=== PATIENT | female | born 1965 | race Caucasian/White ===

== ENCOUNTER 2017-01-04 07:19 | Inpatient (IN) | payer BC ==
[2016-12-01 14:29] VITALS: BMI 43.0
[~2017-01-04] VITALS: Ht 172.7 cm; Wt 129.6 kg
[2017-01-04] VITALS (8 sets, daily range): BP systolic 87–135; BP diastolic 51–88; PULSE 87–110; TEMP 36.6–37.1; O2SAT 93–100; Ht 172.7 cm; Wt 129.6 kg
[~2017-01-04 07:19] MED LIST: ATV/1 PO; CEFAZOLIN 3000 MG/65 ML D5W IV SCH; CYCL10TA6 PO; CeleBREX 200 MG CAP PO SCH; DIPH1TAB98 PO; DULO60CA44 PO; FAMO20TA11 PO; FERR1TAB13 PO; GABA-113 PO; HYDR-3983 PO; LACTATED RINGER'S 1000ML 1,000 ML IV SCH; LACTATED RINGER'S 1000ML 500 ML IV ONE; LEVO150T PO; MELO15TA4 PO; METH500T37 PO; PREGABALIN 75 MG CAP PO SCH; TOLT4CAP PO; TRAM-10 PO; VALS320T2 PO
[2017-01-04] MEDS ORDERED: EpHEDrine SULFATE INJ 50 MG/ML AMP IV PRN (07:45)
[2017-01-04] MEDS ORDERED: ONDANSETRON INJ 2 MG/ML 2 ML VIAL IV PRN ×2 (07:45→11:45)
[2017-01-04] MEDS ORDERED: ATROPINE SULFATE 0.1 MG/ML 5ML SYR IV PRN (07:45)
[2017-01-04] MEDS ORDERED: LEVO175T3 PO (08:32)
[2017-01-04] MEDS ORDERED: MIDAZOLAM HCL 1 MG/ML 2ML VIAL ONE (08:38)
[2017-01-04] MEDS ORDERED: FENTANYL CITRATE INJ 50 MCG/1 ML 2 ML VIAL ONE ×5 (08:38→11:07)
--- NOTE | 2017-01-04 08:51 | History and Physical ---
History & Physical Date Jan 04, 2017. Chief Complaint LBP and bilateral leg pain History of Present Illness The patient is a 51 year old female with complaints of above who has struggled for 7 months with classic neurogenic claudication. she has a positive shopping cart sign. She is using a walker for longer distance ambulation. 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 she failed to see improvement with PT or JOSH. MRI shows stenosis L3-5, xrays show a degen scoliosis L2-5 with facet djd. Her pedicles are small at L2. grade I degen spondy L4-5. Past Medical/Surgical History hypothyroidism fibromyalgia hernia repair c section L TKA iron deficiency anemia Additional History Hepatic Disease: No Endocrine Disorder: No Kidney Disease: No Hypertension: No Heart Disease: No Bleeding Tendencies: No Infectious Diseases: No Allergies Coded Allergies: Lisinopril (Verified Adverse Reaction, Unknown, cough, 01/04/17) Home Medications Scheduled Cyclobenzaprine Hcl (Flexeril), 10 MG PO HS Duloxetine Hcl (Cymbalta), 60 MG PO QAM Famotidine (Pepcid), 20 MG PO BID Ferrous Sulfate (Kp Ferrous Sulfate), 1 TAB PO TID Gabapentin (Neurontin), 300 MG PO TID Levothyroxine Sodium (Levothyroxine Sodium), 1 TAB PO QAM Lorazepam (Ativan), 0.25 MG PO BID Lorazepam (Ativan), 1 MG PO HS Meloxicam (Mobic), 15 MG PO QAM Tolterodine Tartrate (Detrol La), 4 MG PO HS Valsartan/Hctz (Diovan Hct 320MG/25MG), 1 TAB PO QAM Scheduled PRN Diphenhydramine Hcl (Sleep) (Sleep Aid), 1 TAB PO HS PRN for Sleep Hydrocodone/Acetaminophen 7.5MG/325MG ([place] 7.5MG/325MG), 1 TAB PO QID PRN for Pain Methocarbamol (Robaxin), 1,000 MG PO BID PRN for Pain Tramadol (Ultram), 100 MG PO Q6H PRN for Pain Physical Examination Skin: warm/dry Eyes: normal inspection, sclerae normal ENT: normal ENT inspection Head: normocephalic, atraumatic Neck: supple, trachea midline Respiratory/Chest: lungs clear, no respiratory distress Cardiovascular: regular rate, rhythm Back: normal inspection Extremities: normal inspection, normal range of motion Neurologic/Psych: no motor/sensory deficits, alert, normal reflexes, oriented x 3 Diagnosis lumbar stenosis L3-5, mild degen scoliosis, L4-5 degen spondylolisthesis Plan of Treatment L 3-5 decompression/fusion, possible inclusion of L2-3 based upon facet djd intraoperatively and pedicle size
[2017-01-04] MEDS ORDERED: BUPIVACAINE/EPINEPHRINE 0.5% MPF 1:200,000 30 ML VIAL ONE (09:09)
[2017-01-04] MEDS ORDERED: THROMBIN 5000 UNITS KIT ONE (09:09)
[2017-01-04] MEDS ORDERED: THROMBIN FOR SOLN 20000 UNIT KIT ONE ×2 (09:09→10:13)
[2017-01-04] MEDS ORDERED: HEPARIN SOD (PORCINE) 1000 UNIT/ML 10 ML VIAL ONE (09:10)
[2017-01-04] MEDS ORDERED: BACITRACIN 50000 UNIT VIAL ONE (09:10)
[2017-01-04] MEDS ORDERED: NURSING VERBAL MED ORDER ONE (09:23)
[2017-01-04] MEDS ORDERED: SCOPOLAMINE 1.5 MG TDSY TD ONE (09:30)
[2017-01-04] MEDS ORDERED: HYDROmorphone INJ 2 MG/ML SYR/VIAL ONE ×3 (09:58→11:44)
[2017-01-04] MEDS ORDERED: ROCURONIUM BROMIDE 10 MG/ML 5 ML VIAL ONE (10:28)
[2017-01-04] MEDS ORDERED: ONDANSETRON INJ 2 MG/ML 2 ML VIAL ONE ×2 (10:28→11:32)
[2017-01-04] MEDS ORDERED: DEXAMETHASONE SOD INJ 4 MG/ML VIAL ONE (10:28)
[2017-01-04] MEDS ORDERED: PROPOFOL IV EMULSION 10 MG/ML 20 ML VIAL IV ONE (10:28)
[2017-01-04] MEDS ORDERED: LIDOCAINE HCL 2% 2 ML VIAL (20MG/ML) ONE (10:28)
[2017-01-04] MEDS ORDERED: METOCLOPRAMIDE HCL INJ 5 MG/ML 2 ML VIAL ONE (10:28)
[2017-01-04] MEDS ORDERED: RANITIDINE HCL 25 MG/ML INJ ONE (10:28)
[2017-01-04] MEDS ORDERED: FLOSEAL HEMOSTATIC MATRIX 10ML TOP ONE (11:20)
[2017-01-04] MEDS ORDERED: SODIUM CHLORIDE 0.9% 1000ML 1,000 ML IV SCH (11:31)
--- NOTE | 2017-01-04 11:31 | [facility] Post Operative Brief Note ---
Immediate Operative Summary Operative Date Jan 04, 2017. Pre-Operative Diagnosis Lumbar stenosis L3-5, mild degenerative scoliosis, L4-5 degenerative spondylolisthesis Post-Operative Diagnosis same as pre-operative Procedure(s) Performed L3-L4, L4-L5, Decompression and Instrumented Fusion, Interbody Fusion, Infuse, with Autograft, non instrumented fusion L2-[address] Paul Alexander Nursing Education Consultant Surgeon(s) Juan Pablo Aquino PA-C Estimated Blood Loss 500ml Findings dict Specimens none
[2017-01-04] MEDS ORDERED: NEOSTIGMINE METHYLSULFATE 1 MG/ML 10ML VIAL ONE (11:32)
[2017-01-04] MEDS ORDERED: VOLUVEN IN NSS ONE (11:32)
[2017-01-04] MEDS ORDERED: GLYCOPYRROLATE INJ 0.2 MG/ML VIAL ONE (11:32)
--- NOTE | 2017-01-04 11:42 | DIAGNOSTIC IMAGING REPORT ---
LUMBAR SPINE, INTRAOPERATIVE FLUOROSCOPY HISTORY: L3-L5 decompression and fusion. FLUOROSCOPY TIME: 12 seconds. FINDINGS: Intraoperative fluoroscopy was provided for the lumbar spine. 3 fluoroscopic spot images were obtained. L3-L5 posterior decompression and fusion with pedicle screws and rods. The hardware is intact. IMPRESSION: Fluoroscopy provided for a L3-L5 posterior decompression and fusion. Electronically signed by: Marin Blunt M.D. 01/04/2017 11:41 AM Dictated Date/Time: 01/04/2017 11:40 AM
[2017-01-04] MEDS ORDERED: PROMETHAZINE HCL INJ 12.5 MG in SODIUM CHLORIDE 0.9% 50ML 50 ML IV PRN (11:45)
[2017-01-04] MEDS ORDERED: BISACODYL 10 MG SUPP PR PRN (11:45)
[2017-01-04] MEDS ORDERED: ACETAMINOPHEN IV 100 ML IV PRN (11:45)
[2017-01-04] MEDS ORDERED: FAMOTIDINE 20 MG TAB PO PRN (11:45)
[2017-01-04] MEDS ORDERED: hydrOXYzine HCL 25 MG TAB PO PRN (11:45)
[2017-01-04] MEDS ORDERED: SOD PHOSPHATE/SOD BIPHOSPHATE ENEMA 132 ML BTL PR PRN (11:45)
[2017-01-04] MEDS ORDERED: ALUMINUM/MAGNESIUM SUSP 30 ML UDC PO PRN (11:45)
[2017-01-04] MEDS ORDERED: LORAZEPAM INJ 0.5 MG in SYRINGE 0 ML IV PRN (11:45)
[2017-01-04] MEDS ORDERED: NALOXONE HCL 0.4 MG/1 ML VIAL/CARP IV PRN ×2 (11:45)
[2017-01-04] MEDS ORDERED: LORAZEPAM 0.5 MG TAB PO PRN (11:45)
[2017-01-04] MEDS ORDERED: METOCLOPRAMIDE HCL INJ 5 MG/ML 2 ML VIAL IV PRN (11:45)
[2017-01-04] MEDS: FENTANYL CITRATE INJ 50 MCG/1 ML 2 ML VIAL IV PRN ×4 (12:00→12:15)
[2017-01-04] MEDS ORDERED: MoRPHine SULFATE 1 MG/ML 50 ML PCA CASS ONE (12:00)
[2017-01-04] MEDS: HYDROmorphone INJ 1 MG/ML SYR IV PRN ×3 (12:20→12:40)
--- NOTE | 2017-01-04 12:44 | Anesthesiology Progress Note ---
Anesthesia Post Op Note Date & Time Jan 04, 2017 at 12:44 Vital Signs Pain Intensity: 3.0 Vital Signs Past 12 Hours Date Time Temp Pulse Resp B/P Pulse Ox O2 Delivery O2 Flow Rate FiO2 01/04/17 12:35 88 16 131/63 100 Nasal Cannula 4 01/04/17 12:25 91 18 136/63 100 Nasal Cannula 4 01/04/17 12:15 89 16 141/76 100 Nasal Cannula 4 01/04/17 12:05 90 18 140/56 100 Mask 10 01/04/17 11:55 96 17 145/85 100 Mask 10 01/04/17 11:48 37 98 16 138/88 100 Mask 10 01/04/17 08:10 36.7 90 20 135/83 96 Room Air Notes Mental Status: alert / awake / arousable, participated in evaluation Pt Amnestic to Procedure: Yes Nausea / Vomiting: adequately controlled Pain: adequately controlled Airway Patency, RR, SpO2: stable & adequate BP & HR: stable & adequate Hydration State: stable & adequate Anesthetic Complications: no major complications apparent
[2017-01-04] MEDS: MoRPHine SULFATE 1 MG/ML 50 ML PCA CASS IV PRN ×3 (13:33→23:19)
[2017-01-04] MEDS: SODIUM CHLORIDE 0.9% 1000ML 1,000 ML IV SCH (14:43)
[2017-01-04] MEDS ORDERED: DEXAMETHASONE INJ 6 MG in SYRINGE 0 ML IV SCH (18:00)
[2017-01-04] MEDS ORDERED: CEFAZOLIN IV 2,000 MG in DEXTROSE 5% 50ML 50 ML IV SCH (18:00)
[2017-01-04] MEDS ORDERED: LORAZEPAM 1 MG TAB PO SCH (21:00)
[2017-01-04] MEDS: GABAPENTIN 300 MG CAP PO SCH (21:31)
[2017-01-04] MEDS: LORAZEPAM 1 MG TAB PO SCH (21:37)
[2017-01-04] MEDS: DOCUSATE SODIUM/SENNA 50/8.6MG TAB PO SCH (23:18)
[2017-01-04] MEDS: FAMOTIDINE 20 MG TAB PO SCH (23:18)
[2017-01-05] MEDS ORDERED: CEFAZOLIN IV 2,000 MG in DEXTROSE 5% 50ML 50 ML IV SCH (03:00)
[2017-01-05] MEDS: SODIUM CHLORIDE 0.9% 1000ML 1,000 ML IV SCH (03:33)
[2017-01-05 04:09] VITALS: BP 118/61; PULSE 86; TEMP 36.6; O2SAT 94
[2017-01-05] MEDS: DEXAMETHASONE INJ 6 MG in SYRINGE 0 ML IV SCH ×2 (05:41→13:37)
[2017-01-05] MEDS ORDERED: HYDROmorphone INJ 1 MG/ML SYR IV PRN (06:00)
[2017-01-05] MEDS ORDERED: DC PCA ONE (06:00)
[2017-01-05] MEDS: LEVOTHYROXINE 175 MCG TAB PO SCH (06:34)
[2017-01-05 07:07] VITALS: BP 133/70; PULSE 84; TEMP 36.8; O2SAT 99
[2017-01-05] MEDS ORDERED: NURSING VERBAL MED ORDER ONE (07:15)
[2017-01-05 08:00] VITALS: O2SAT 99
[2017-01-05] MEDS: GABAPENTIN 300 MG CAP PO SCH ×3 (08:01→21:15)
[2017-01-05] MEDS: FAMOTIDINE 20 MG TAB PO SCH ×2 (08:02→21:14)
[2017-01-05] MEDS: OXYCODONE HCL IR 5 MG TAB (IMMEDIATE RELEASE) PO PRN ×4 (08:03→22:21)
[2017-01-05] MEDS: LORAZEPAM 0.5 MG TAB PO SCH ×2 (08:04→13:43)
[2017-01-05 08:08] LABS: MEAN CELL VOLUME 90.9 fL (80-100); MEAN CORPUSCULAR HEMOGLOBIN 29.2 pg (25-34); MEAN CORPUSCULAR HGB CONC 32.1 g/dl (32-36); MEAN PLATELET VOLUME 10.3 fL (7.4-10.4); PLATELET COUNT 345 K/uL (130-400); RED BLOOD COUNT 3.08 M/uL (4.2-5.4); WHITE BLOOD COUNT 17.65 K/uL (4.8-10.8)
[2017-01-05 08:34] LABS: BASO % 0.1 %; BASO ABS # 0.01 K/uL (0-0.2); COMPLETE YES; IG% 0.5 %; MONO % 4.7 %; NEUT % 90.7 %
[2017-01-05 08:39] LABS: BUN/CREATININE RATIO 11.4 (10-20); CALCIUM 8.3 mg/dl (8.5-10.1); CREATININE 0.77 mg/dl (0.60-1.20); POTASSIUM 4.1 mmol/L (3.5-5.1)
[2017-01-05] MEDS: DULOXETINE HCL 60 MG CAP PO SCH (09:21)
[2017-01-05] MEDS: VALSARTAN/HCTZ 160/12.5 MG TAB PO SCH (09:21)
--- NOTE | 2017-01-05 10:05 | Anesthesiology Progress Note ---
Anesthesia Post Op Note Date & Time Jan 05, 2017 at 10:04 Vital Signs Pain Intensity: 8.0 Vital Signs Past 12 Hours Date Time Temp Pulse Resp B/P Pulse Ox O2 Delivery O2 Flow Rate FiO2 01/05/17 08:00 99 Room Air 01/05/17 07:07 36.8 84 18 133/70 99 Room Air 01/05/17 04:09 36.6 86 16 118/61 94 Nasal Cannula 3.0 01/04/17 23:42 37.0 87 16 110/57 96 Nasal Cannula 3.0 01/04/17 23:30 Nasal Cannula 2.0 96 Notes Mental Status: alert / awake / arousable, participated in evaluation Pt Amnestic to Procedure: Yes Nausea / Vomiting: adequately controlled Pain: adequately controlled Airway Patency, RR, SpO2: stable & adequate BP & HR: stable & adequate Hydration State: stable & adequate Anesthetic Complications: no major complications apparent
[2017-01-05 12:20] VITALS: BP 116/67; PULSE 85; TEMP 36.6; O2SAT 98
[2017-01-05 15:26] VITALS: BP 101/63; PULSE 96; TEMP 36.7; O2SAT 94
[2017-01-05] MEDS: LORAZEPAM 1 MG TAB PO SCH (21:16)
[2017-01-05] MEDS: MAGNESIUM HYDROXIDE SUSP 30 ML UDC PO PRN (21:20)
[2017-01-05] MEDS: DOCUSATE SODIUM/SENNA 50/8.6MG TAB PO SCH (21:42)
[2017-01-05 23:16] VITALS: BP 103/53; PULSE 85; TEMP 36.9; O2SAT 95
[2017-01-06] MEDS: OXYCODONE HCL IR 5 MG TAB (IMMEDIATE RELEASE) PO PRN ×3 (04:46→15:56)
[2017-01-06] MEDS: LEVOTHYROXINE 175 MCG TAB PO SCH (05:37)
[2017-01-06] MEDS ORDERED: POLYETHYLENE (MIRALAX) 17 GM PACK PO SCH (06:00)
[2017-01-06 07:11] VITALS: BP 133/79; PULSE 91; TEMP 36.8; O2SAT 92
[2017-01-06] MEDS: GABAPENTIN 300 MG CAP PO SCH ×3 (09:55→21:39)
[2017-01-06] MEDS: DULOXETINE HCL 60 MG CAP PO SCH (09:56)
[2017-01-06] MEDS: VALSARTAN/HCTZ 160/12.5 MG TAB PO SCH (09:56)
[2017-01-06] MEDS: LORAZEPAM 0.5 MG TAB PO SCH ×2 (10:02→13:38)
[2017-01-06] MEDS: FAMOTIDINE 20 MG TAB PO SCH ×2 (13:36→21:39)
[2017-01-06] MEDS: HYDROmorphone INJ 0.5 MG/0.5 ML SYR IV PRN ×3 (13:43→20:00)
[2017-01-06] MEDS ORDERED: NURSING VERBAL MED ORDER ONE (14:00)
--- NOTE | 2017-01-06 15:04 | Orthopedic Progress Note ---
Orthopedic Progress Note Date of Service Jan 06, 2017. Subjective Post OP Day: 2 Reports: feeling well, Denies: SOB, calf pain, chest pain, complaints, light headedness, nausea / vomiting, pain controlled w PO medications, using QUALITY ASSURANCE CONSULTANT Objective calves soft nontender, N/V intact, dressing C/D/I, A&O x3, hemovac drainage Date Time Temp Pulse Resp B/P Pulse Ox O2 Delivery O2 Flow Rate FiO2 01/06/17 07:20 Room Air 01/06/17 07:11 36.8 91 16 133/79 92 Room Air 01/06/17 00:00 Room Air 01/05/17 23:16 36.9 85 18 103/53 95 Room Air 01/05/17 18:00 Room Air 01/05/17 15:26 36.7 96 18 101/63 94 Room Air Assessment & Plan Assessment: more LBP today, no leg symptoms. will add toradol, flexeril. d/c hvc, d/c tomorrow? Discharge Planning Discharge Planning: home Pain Management: Toradol, Oxy IR DVT Prophylaxis: SCDs
[2017-01-06] MEDS ORDERED: CYCLOBENZAPRINE HCL 5 MG TAB PO PRN (15:15)
[2017-01-06] MEDS: KETOROLAC TROMETHAMINE 30 MG/ML VIAL IV PRN ×2 (15:57→21:40)
[2017-01-06 16:36] VITALS: BP 108/63; PULSE 84; TEMP 36.7; O2SAT 99
[2017-01-06] MEDS: LORAZEPAM 1 MG TAB PO SCH (21:39)
[2017-01-06] MEDS: DOCUSATE SODIUM/SENNA 50/8.6MG TAB PO SCH (21:40)
[2017-01-06] MEDS: MAGNESIUM HYDROXIDE SUSP 30 ML UDC PO PRN (21:46)
[2017-01-06 23:05] VITALS: BP 125/70; PULSE 80; TEMP 36.8; O2SAT 96
[2017-01-07] MEDS: OXYCODONE HCL IR 5 MG TAB (IMMEDIATE RELEASE) PO PRN ×2 (05:30→09:37)
[2017-01-07] MEDS: LEVOTHYROXINE 175 MCG TAB PO SCH (05:31)
[2017-01-07 07:10] VITALS: BP 147/74; PULSE 75; TEMP 36.4; O2SAT 98
[2017-01-07] MEDS ORDERED: RXC5 PO (09:31)
--- NOTE | 2017-01-07 09:31 | Discharge Instructions ---
Discharge Instructions Date of Service Jan 07, 2017. Admission Reason for Admission: Lumbar Spinal Stenosis Discharge Discharge Diagnosis / Problem: same Discharge Goals Goal(s): Decrease discomfort Activity Recommendations Activity Limitations: per Instructions/Follow-up section . Instructions / Follow-Up Instructions / Follow-Up ACTIVITY RECOMMENDATIONS: SELF CARE INSTRUCTIONS AFTER THORACIC/LUMBAR FUSIONS 1. You may walk to your tolerance. It is good exercise for your legs and back. Expect some back and intermittent leg aches and pains. 2. You may perform "counter-top" level activities (make a sandwich, olivia with a project, etc.). 3. No bending or lifting of more than 10 pounds or back twisting of any nature (roll like a log when turning in bed). 4. You may ride in a car for 20-30 minutes at a time. No driving until after your first visit with your doctor. 5. Frequent changes of position and restricting sitting to 30 minutes at a time will help limit the amount of back spasms and stiffness you may experience. 6. You may discontinue the use of ambulatory aids (cane, crutches, etc.) once your strength and confidence allow. 7. You may ring attacher the shower and let water strike your incision when you arrive home at least once daily. Do not take a tub bath, sit in a hot tub or go into a swimming pool until after your first recheck in the office. SPECIAL CARE INSTRUCTIONS: VERY IMPORTANT TO READ AND REVIEW A. Your surgical incision has been closed with a cosmetic suture under the skin that will dissolve in about 6 weeks. In 14 days, you can use a pair of clean scissors and cut the suture that is left outside of the skin at the ends of your incision. 1. The small skin tapes can be removed 7 days after surgery if they have not fallen off by that point. 2. You may keep the wound open to air as much as possible to promote healing after post-op day number 5 unless told otherwise by your doctor. 3. If you think the wound looks like it is becoming infected (redness or worsening drainage) and/or you are experiencing fever, chill or worsening back pain and muscle spasms, contact the office so that we may evaluate you as soon as possible. B. Complications are uncommon, but please contact us if you have any signs or symptoms of: 1. wound infection (fever higher than 102.5 degrees F, redness, separation of wound, drainage, or increasing pain from the incision) 2. blood clots in legs (pain, swelling, redness and warmth in legs) 3. urinary tract infection (fever higher than 102.5 degrees F, burning upon urination or increased frequency of urination) 4. nerve problems (inability to walk on your toes or heels, numbness, loss of bowel or bladder control) 5. any other symptoms that concern you C. Please call the office at if you have any concerns or questions about your operation or recovery. D. No smoking! Smoking drastically decreases the chance of a solid fusion. E. Do not take any anti-inflammatory medications (Indocin, Advil, Motrin, Aspirin, Naprosyn, etc.) as these may inhibit the chance of a solid fusion. Tylenol is okay to take for pain. MANAGING PAIN AFTER SPINAL SURGERY 1. Narcotic medication is intended for short-term use and will be provided for surgical pain. Surgical pain usually lasts for a period of 4-6 weeks. Narcotic medication includes Percocet, Vicodin, Darvocet, Tylenol #3 or Lortab. 2. Longer-term pain is more appropriately treated with non-narcotic medication such as Tylenol ES. 3. Muscle spasm is not appropriately treated with narcotics. Muscle relaxers such as Soma, Flexeril or Skelaxin can be used along with Tylenol ES. 4. Remember that we all live with some "aches and pains". This is not unusual or uncommon after an injury or as we get older. a. Back pain is expected and may include muscle spasms for 4 to 6 weeks after surgery. The pain should gradually improve. If the pain worsens for no apparent reason, please contact the office. b. Intermittent leg pain may also be experienced and should not be concerned about unless it worsens for no apparent reason. If so, please contact the office. 5. We will provide appropriate medication within the normal guidelines of their prescribed use. We will also be very cautious and aware of potential abuse and extended duration of patients' medication needs. a. Pain medications are for your comfort and to assist with sleep and rest so that the tissue can heal. They are not provided in order to return to normal activity and should not be used through the day. To do so or worsening pain at night can result from ongoing tissue damage and development of tolerance to the prescribed medicine. 6. Please allow 2-3 days to process refills. Prescriptions will not be mailed but must be picked up at the office. FOLLOW UP VISIT: Keep your scheduled follow-up appointment. Any questions, please call the office at . Current Hospital Diet Patient's current hospital diet: Regular Diet Discharge Diet Recommended Diet: Regular Diet Procedures Procedures Performed: L3-L4, L4-L5, Decompression and Instrumented Fusion, Interbody Fusion, Infuse, with Autograft, non instrumented fusion L2-3 with infuse Pending Studies Studies pending at discharge: no Medical Emergencies . Who to Call and When: Medical Emergencies: If at any time you feel your situation is an emergency, please call 911 immediately. . Non-Emergent Contact Non-Emergency issues call your: Surgeon . "Provider Documentation" section prepared by Paul Alexander. VTE Core Measure Inpt VTE Proph given/why not?: SCD's [place] Drug Monitoring Program Search Results: patient reviewed within database, no issues identified
--- NOTE | 2017-01-07 09:33 | Orthopedic Progress Note ---
Orthopedic Progress Note Date of Service Jan 07, 2017. Subjective Post OP Day: 3 Reports: pain controlled w PO medications Objective calves soft nontender, N/V intact, incision C/D/I, A&O x3, hemovac drainage Date Time Temp Pulse Resp B/P Pulse Ox O2 Delivery O2 Flow Rate FiO2 01/07/17 07:15 Room Air 01/07/17 07:10 36.4 75 18 147/74 98 Room Air 01/06/17 23:40 Room Air 01/06/17 23:05 36.8 80 18 125/70 96 Room Air 01/06/17 16:36 36.7 84 16 108/63 99 Room Air 01/06/17 16:00 Room Air Assessment & Plan Assessment: no leg symptoms. will add toradol, flexeril. d/c hvc, d/c Discharge Planning Discharge Planning: home Pain Management: Toradol, Oxy IR DVT Prophylaxis: SCDs
[2017-01-07] MEDS: VALSARTAN/HCTZ 160/12.5 MG TAB PO SCH (09:35)
[2017-01-07] MEDS: GABAPENTIN 300 MG CAP PO SCH (09:35)
[2017-01-07] MEDS: DULOXETINE HCL 60 MG CAP PO SCH (09:35)
[2017-01-07] MEDS: LORAZEPAM 0.5 MG TAB PO SCH (09:35)
[2017-01-07] MEDS: FAMOTIDINE 20 MG TAB PO SCH (09:36)
[2017-01-07 10:12] VITALS: BP 147/74; PULSE 75; TEMP 36.4; O2SAT 98
--- NOTE | 2017-01-07 16:41 | OPERATIVE REPORT ---
DATE OF OPERATION: 01/04/2017 PREOPERATIVE DIAGNOSES: 1. L3-L4 and L4-L5 spinal stenosis. 2. L3-L4 and L4-L5 degenerative spondylolisthesis -- grade 1. 3. L2-L3 facet arthrosis. POSTOPERATIVE DIAGNOSES: Same. PROCEDURES: 1. L3 and L4 laminectomies with bilateral medial facetectomies. 2. Segmental pedicle screw instrumentation -- bilateral L3, L4 and L5 with K2M [place] pedicle screws. 3. Posterior fusion L2-L5 -- bilateral with Infuse BMP on a collagen sponge, tricalcium phosphate, local bone, bone putty, and bone marrow aspirate. 4. Left L4-L5 transforaminal lumbar interbody fusion with K2M titanium mesh interbody spacer, local bone, bone putty, and bone marrow aspirate. 5. Right iliac crest bone marrow aspiration and stem cell concentration and application of bone graft. SURGEON: Dr. Alexander. FINISHED GOODS INSPECTOR: Juan Pablo Aquino PA-C . Please note he participated in all portions of the procedure and was critical for performance of procedure, participated in positioning, prepping, draping, retraction, and wound closure. ANESTHESIA: General endotracheal anesthesia. COMPLICATIONS: None. ESTIMATED BLOOD LOSS: Per anesthesia record. DESCRIPTION OF PROCEDURE: After identification of the patient and operative level, she was brought to the OR, where she underwent induction of general anesthesia. She was then positioned prone on Sukumar OR table. All bony prominences well padded. Care was taken to avoid pressure on the periorbital area. Lumbosacral area was sterilely prepped and draped in usual fashion. Antibiotics were administered. Time-out was performed. Level was confirmed and skin incision was infiltrated with Marcaine with epinephrine. I made skin incision from spinous process of L2-L5 and exposed posterior elements out to the transverse processes from L2-L5. I placed Gelpi retractors, confirmed the operative levels with fluoroscopy and marked them. I then did central laminectomies of L3 and L4 with removal of ligamentum flavum and medial facets. I completed decompression with Kerrisons and confirmed nerve roots are decompressed from L3-L5 bilaterally. I then placed pedicle screws bilaterally at L3, L4, and L5 with K2M [place] pedicle screws. I checked position with fluoroscopy and then did a complete diskectomy at L4-L5 from the left side, prepared disk space with shubham and curettes. I determined graft size with trial sizers and then filled a titanium mesh cage with local bone, bone putty, bone marrow aspirate and tamped the cage into position. I confirmed position with fluoroscopy, then lowered the Liam frame and applied rods and endcaps from L3-L5 bilaterally. I final tightened all endcaps and irrigated with bacitracin solution. Bone marrow aspirate taken from the right iliac crest via separate stab incision with a [employer] needle concentrated with the Arteriocyte system and applied the bone graft. I then decorticated the transverse process and facets from L2-L5 bilaterally. There was noted to be some mild facet arthritis, but no stenosis on the MRI at L2-L3. Therefore, I did not do instrumented fusion at L2-L3 and instrumented fusion from L3-L5. I packed bone graft from L2 to L5 bilaterally and then closed in layered fashion over GUNJAN drain. All sponge and needle counts were correct at the end of the case. I attest to the content of the Intraoperative Record and any orders documented therein. Any exceptio ns are noted below.
--- NOTE | 2017-01-20 15:01 | Discharge Summary ---
Orthopedic Discharge Summary Admission Date/Reason Jan 04, 2017 at 11:02 Lumbar Spinal Stenosis. Discharge Date/Disposition Jan 07, 2017 Home Diagnosis Principal Diagnosis: same Procedure(s) Performed L3-5 decompression/fusion Medication Reconciliation New Medications: Oxycodone HCl (Oxycodone HCl) 5 Mg Tab 5-10 MG PO Q4H PRN for Moderate - severe pain, #90 TAB Continued Medications: Cyclobenzaprine Hcl (Flexeril) 10 Mg Tab 10 MG PO HS, #21 TAB Diphenhydramine Hcl (Sleep) (Sleep Aid) 25 Mg Tab 1 TAB PO HS PRN for Sleep Duloxetine Hcl (Cymbalta) 60 Mg Cap 60 MG PO QAM, CAP Famotidine (Pepcid) 20 Mg Tab 20 MG PO BID Ferrous Sulfate (Kp Ferrous Sulfate) 325 Mg Tab 1 TAB PO TID, TAB 3 Refills Gabapentin (Neurontin) 300 Mg Cap 300 MG PO TID, CAP Levothyroxine Sodium (Levothyroxine Sodium) 175 Mcg Tab 1 TAB PO QAM for 30 Days, #30 TAB 5 Refills Lorazepam (Ativan) 1 Mg Tab 0.25 MG PO BID, TAB Lorazepam (Ativan) 1 Mg Tab 1 MG PO HS, TAB Tolterodine Tartrate (Detrol La) 4 Mg Cap 4 MG PO HS, CAP Valsartan/Hctz (Diovan Hct 320MG/25MG) 1 Tab Tab 1 TAB PO QAM, TAB Discontinued Medications: Hydrocodone/Acetaminophen 7.5MG/325MG (Standard 7.5MG/325MG) Tab 1 TAB PO QID PRN for Pain, TAB PRN PAIN Meloxicam (Mobic) 15 Mg Tab 15 MG PO QAM, TAB HOLD 7-10 DAYS PRIOR' Methocarbamol (Robaxin) 500 Mg Tab 1000 MG PO BID PRN for Pain, TAB Tramadol (Ultram) 50 Mg Tab 100 MG PO Q6H PRN for Pain, TAB Admission Physical Exam As per Admitting History & Physical. Hospital Course The patient was admitted for elective lumbar surgery and tolerated the procedure without complications. The patient remained hemodynamically stable on the floor and showed progress with PT. Pain was controlled on oral meds, SCDs were utilized, and bowel function returned. The patient was discharged in stable condition POD3. Discharge Instructions Please refer to the electronic Patient Visit Report (Discharge Instructions) for additional information.
== END 2017-01-07 10:45 | disposition home or self-care (01) | DRG 460 ==
LOC: ENRESERVTM → ENRESERVDT → C.ACU 07:19 → C.MSN 11:02
PROVIDERS: ADMIT Orthopaedic Surgery Orthopaedic Surgery of the Spine; ATTEND Orthopaedic Surgery Orthopaedic Surgery of the Spine
PROC: 0ST20ZZ Resection of Lumbar Vertebral Disc, Open Approach (ICD-10-PCS; principal; 2017-01-04 09:00)
PROC: 07DR3ZZ Extraction of Iliac Bone Marrow, Percutaneous Approach (ICD-10-PCS; principal; 2017-01-04 09:00)
PROC: 0SG1071 Fusion of 2 or more Lumbar Vertebral Joints with Autologous Tissue Substitute, Posterior Approach, Posterior Column, Open Approach (ICD-10-PCS; principal; 2017-01-04 09:00)
PROC: 0SG00AJ Fusion of Lumbar Vertebral Joint with Interbody Fusion Device, Posterior Approach, Anterior Column, Open Approach (ICD-10-PCS; principal; 2017-01-04 09:00)
DX: M48.06 Spinal stenosis, lumbar region (principal); Z68.41 Body mass index [BMI] 40.0-44.9, adult; I95.9 Hypotension, unspecified; M43.16 Spondylolisthesis, lumbar region; M47.816 Spondylosis without myelopathy or radiculopathy, lumbar region; M41.80 Other forms of scoliosis, site unspecified; I10 Essential (primary) hypertension; E03.9 Hypothyroidism, unspecified; K21.9 Gastro-esophageal reflux disease without esophagitis; M79.7 Fibromyalgia; G62.9 Polyneuropathy, unspecified; D50.9 Iron deficiency anemia, unspecified; F41.9 Anxiety disorder, unspecified; F32.9 Major depressive disorder, single episode, unspecified; E66.9 Obesity, unspecified; Z96.652 Presence of left artificial knee joint; Z79.1 Long term (current) use of non-steroidal anti-inflammatories (NSAID); Z79.891 Long term (current) use of opiate analgesic; Z79.899 Other long term (current) drug therapy